=== PATIENT | female | born 1960 | race African-American/Black ===

== ENCOUNTER 2020-04-27 06:13 | Inpatient (IN) | payer OTHER ==
[2020-04-19 16:54] VITALS: BMI 33.4
[2020-04-27] MEDS ORDERED: PROPOFOL 20 ML ONE ×3 (07:21→08:14)
[2020-04-27] MEDS ORDERED: DEXAMETHASONE SOD PHOSPHATE/PF 10 MG/ML SDV ONE (07:26)
[2020-04-27] MEDS ORDERED: ROPIVACAINE HCL 0.5% 30ML VIAL ONE (07:26)
[2020-04-27] MEDS ORDERED: MIDAZOLAM HCL 2 MG/2 ML SINGLE DOSE VIAL ONE ×4 (07:26→10:06)
[2020-04-27] MEDS ORDERED: BUPIVACAINE HCL/PF 0.5% (5 MG/ML) 30 ML VIAL IJ ONE (07:28)
[2020-04-27] MEDS ORDERED: BUPIVACAINE HCL 50 ML ONE (07:55)
[2020-04-27] MEDS ORDERED: SUCCINYLCHOLINE CHLORIDE 200 MG/10 ML SYRINGE ONE (08:14)
[2020-04-27] MEDS ORDERED: EPHEDRINE SULFATE/0.9% NACL/PF 50 MG/10 ML SYRINGE NR ONE (08:14)
[2020-04-27] MEDS ORDERED: TRANEXAMIC ACID 1000 MG/10 ML VIAL ONE ×2 (08:20→10:13)
[2020-04-27] MEDS ORDERED: ceFAZolin SODIUM 1 GM VIAL ONE (08:20)
[2020-04-27] MEDS ORDERED: DEXAMETHASONE SOD PHOSPHATE 4 MG/1 ML VIAL ONE (08:22)
[2020-04-27] MEDS ORDERED: ONDANSETRON 4 MG/2 ML VIAL ONE (08:22)
[2020-04-27] MEDS ORDERED: BUPIVICAINE 0.25%/MORPH PF/KETOROLAC - 51ML DISP.SYRINGE IA ONE ×2 (09:29→10:00)
[2020-04-27] MEDS ORDERED: VANCOMYCIN 1,000 MG VIAL (RESTRICTED TO ID ONLY) ONE (10:01)
[2020-04-27] MEDS ORDERED: VANCOMYCIN 1,000 MG VIAL (RESTRICTED TO ID ONLY) IVPB ONE (10:02)
[2020-04-27] MEDS ORDERED: ONDANSETRON 4 MG/2 ML VIAL IVPUSH PRN ×2 (10:46→10:49)
[2020-04-27] MEDS ORDERED: PROMETHAZINE HCL 25 MG/1 ML VIAL IVPUSH PRN (10:46)
[2020-04-27] MEDS ORDERED: oxyCODONE HCL 5 MG TABLET PO PRN ×2 (10:46)
[2020-04-27] MEDS ORDERED: ACETAMINOPHEN 500 MG TABLET (FP) PO PRN (10:49)
[2020-04-27] MEDS ORDERED: MAG HYDROX/AL HYDROX/SIMETH 30 ML UNIT-DOSE CUP PO PRN (10:49)
[2020-04-27] MEDS ORDERED: MAGNESIUM HYDROX 2400MG/30ML ORAL SUSPENSION 30 ML CUP PO PRN (10:49)
[2020-04-27] MEDS ORDERED: LACTATED RINGERS SOLUTION 1,000 ML IV SCH (10:49)
[2020-04-27] MEDS ORDERED: ACETAMINOPHEN 325 MG TABLET (FP) PO SCH (11:00)
[2020-04-27] MEDS ORDERED: HYDROmorphone HCL 2 MG TABLET PO PRN (11:13)
--- NOTE | 2020-04-27 16:09 | HP ---
CHIEF COMPLAINT: Right hip pain HISTORY OF PRESENT ILLNESS: 59 year-old female with a PMH significant for HLD, hypothyroidism, peripheral neuropathy, breast cancer s/p partial mastectomy, and right hip OA s/p right total hip replacement MARIA EUGENIA today with Dr. Segundo. Recent Travel: No PAST MEDICAL HISTORY: Hyperlipidemia Hypothyroidism Peripheral neuropathy Breast cancer Osteoarthritis Depression PAST SURGICAL HISTORY: Partial mastectomy 2002 Umbilica hernia repair 1975 Tonsillectomy Social History: community center worker at [employer] Smoking: former Alcohol: no Drugs: no Family history: mother ovarian cancer, heart problems Allergies No Known Allergies Allergy (Verified 04/19/20 16:35) HOME MEDICATIONS: Home Medications Medication Instructions Recorded Acetaminophen 1,000 mg PO DAILY PRN 04/19/20 Ascorbic Acid Vitamin C 1,000 mg PO DAILY 04/19/20 Atorvastatin Ca [Lipitor] 40 mg PO HS 04/19/20 Azelastine/Fluticasone 23 gm NS PRN PRN 04/19/20 [Azelastin-Flutic 137-50Mcg Spr] Cyanocobalamin [Vitamin B12 -] 1,000 mcg PO DAILY 04/19/20 Levothyroxine [Synthroid -] 100 mcg PO DAILY 04/19/20 Melatonin 600 mcg SL DAILY 04/19/20 REVIEW OF SYSTEMS CONSTITUTIONAL: Absent: fever, chills, diaphoresis, generalized weakness, malaise, loss of appetite, weight change HEENT: Absent: rhinorrhea, nasal congestion, throat pain, throat swelling, difficulty swallowing, mouth swelling, ear pain, eye pain, visual changes CARDIOVASCULAR: Absent: chest pain, syncope, palpitations, irregular heart rate, lightheade dness, peripheral edema RESPIRATORY: Absent: cough, shortness of breath, dyspnea with exertion, orthopnea, wheezing, stridor, hemoptysis GASTROINTESTINAL: Absent: abdominal pain, abdominal distension, nausea, vomiting, diarrhea, constipation, melena, hematochezia GENITOURINARY: Absent: dysuria, frequency, urgency, hesitancy, hematuria, flank pain, genital pain MUSCULOSKELETAL: Absent: myalgia, arthralgia, joint swelling, back pain, neck pain SKIN: Absent: rash, itching, pallor HEMATOLOGIC/IMMUNOLOGIC: Absent: easy bleeding, easy bruising, lymphadenopathy, frequent infections ENDOCRINE: Absent: unexplained weight gain, unexplained weight loss, heat intolerance, cold intolerance NEUROLOGIC: Absent: headache, focal weakness or paresthesias, dizziness, unsteady gait, seizure, mental status changes, bladder or bowel incontinence PSYCHIATRIC: Absent: anxiety, depression, suicidal or homicidal ideation, hallucinations. PHYSICAL EXAMINATION Vital Signs - 24 hr 04/27/20 04/27/20 04/27/20 06:43 10:30 10:35 Temperature 97.8 F 97.8 F Pulse Rate 73 83 81 Respiratory 15 16 14 Rate Blood Pressure 146/85 115/63 110/61 O2 Sat by Pulse 99 99 100 Oximetry (%) 04/27/20 04/27/20 04/27/20 10:40 10:45 11:00 Temperature Pulse Rate 81 78 75 Respiratory 16 15 19 Rate Blood Pressure 112/61 112/60 116/61 O2 Sat by Pulse 100 100 100 Oximetry (%) 04/27/20 04/27/20 04/27/20 11:15 11:30 11:45 Temperature Pulse Rate 76 76 83 Respiratory 17 18 14 Rate Blood Pressure 111/61 109/66 115/75 O2 Sat by Pulse 100 100 100 Oximetry (%) 04/27/20 04/27/20 12:00 12:59 Temperature 97.7 F Pulse Rate 81 88 Respiratory 16 16 Rate Blood Pressure 109/88 121/62 O2 Sat by Pulse 100 100 Oximetry (%) GENERAL: Awake, alert, and fully oriented, in no acute distress. LUNGS: Breath sounds equal, clear to auscultation bilaterally. No wheezes, and no crackles. No accessory muscle use. HEART: Regular rate and rhythm, S1 and S2 ABDOMEN: Soft, nontender, not distended UPPER EXTREMITIES: 2+ pulses, warm, well-perfused. No cyanosis. No clubbing. No peripheral edema. LOWER EXTREMITIES: right hip surgical dressing c/d/i; no surrounding erythema or swelling +flex/extend bilateral toes, sensory intact abductor wedge in place NEUROLOGICAL: Cranial nerves II-XII intact. Normal speech. Pre op BUN 9 Cr 0.8 Hgb 13.7 Intra op cefazolin 2g x 1 EBL none LR 1L ASSESSMENT/PLAN: 59 year-old female with a PMH significant for HLD, hypothyroidism, peripheral neuropathy, breast cancer s/p partial mastectomy, and right hip OA s/p right total hip replacement MARIA EUGENIA today with Dr. Segundo. Right total hip replacement [facility] --POD #0 --perioperative antibiotics per surgery --pain management per surgery --protonix --bowel regimen --incentive spirometry Hyperlipidemia --continue Lipitor Hypothyroidism --continue levothyroxine Peripheral neuropathy --continue Gabapentin, Vit B12 Breast cancer --stable FEN Fluids: LR@125mL/hr Electrolytes: replete as indicated Nutrition: regular diet DVT prophylaxis: subq lovenox 40mg daily; OOB, ambulation, SCDs, TEDs Physical therapy Dispo: continues to require inpatient care. Full code. Visit type - Emergency Visit Emergency Visit: No - New Patient This patient is new to me today: Yes Date on this admission: 04/27/20 - Critical Care Critical Care patient: No
[2020-04-27] MEDS: CEFAZOLIN 2 GM/D5W 2 GM/50 ML ML IVPB SCH (17:34)
--- NOTE | 2020-04-27 20:02 | OP ---
DATE OF OPERATION: 04/27/2020 ATTENDING SURGEON: Naman Prather MD. MANAGER OF HUMAN RESOURCES: VAHID Johnson. PREOPERATIVE DIAGNOSIS: Severe osteoarthritis, right hip. POSTOPERATIVE DIAGNOSIS: Severe osteoarthritis, right hip. PROCEDURE: Right total hip arthroplasty with robotic assistance. ANESTHESIA: Regional and spinal. ESTIMATED BLOOD LOSS: 100. IMPLANTS USED: Eden Tritanium cluster cup size 48, 36-mm standard liner, 36-mm plus 2.5-mm ceramic head, Accolade 2 femoral stem size 3. COMPLICATIONS: None. DISPOSITION: Stable to recovery room following procedure. INDICATION: This is 59-year-old woman with severe osteoarthritis of her right hip. She has had conservative treatment including physical therapy, medication injection, and a significant pain and disability that affects her activities of daily living. She wishes to proceed with elective total hip arthroplasty at this point. A thorough discussion of risks and benefits was had with the patient regarding treatment including infection, stiffness, dislocation, leg length discrepancy, fracture, neurovascular injury. She understands and wishes to proceed. DETAILS OF PROCEDURE: Patient identified in preoperative area. She had undergone preoperative planning with CT scan for Makoplasty. She underwent a regional block in the preoperative area. Was taken to the operating room and sat up on operating room table and given a spinal anesthetic. She received 2 g Ancef IV. She also received 1 g tranexamic acid during incision and another during closure. She was placed in the lateral decubitus position and held in place with a pegboard positioned with bony prominences well padded and the axillary roll in place. Right hip and lower extremity are prepped and draped in standard sterile fashion. 3 stab incisions were made proximally for the pelvic array pins. These pins were placed, and the pelvic array was placed. The approximately 13-cm curvilinear incision was made for the posterior approach to the right hip. The fascia was incised, external rotators and capsules were divided off the posterior neck of the femur. The femoral checkpoint was placed and limb lengths were registered at that point. The hip was dislocated and the neck cut was made. An anterior capsulotomy was performed through which retractor was placed. Soft tissues were excised around the periphery of the acetabulum. A Steinmann pin was placed superiorly for retraction and a superior pelvic checkpoint was also placed at that point. Registration was performed. The acetabulum was then reamed at the appropriate version and depth according to plan. The acetabulum was then impacted into place. A final impaction and positioning performed freehand. The standard liner was placed and the locking mechanism engaged. The proximal femur then delivered at the incision, and the proximal femur was prepared with box osteotome canal finder followed by serial broaches up to size 3, which had excellent fit and fill and stability. A trial head and neck were placed standard, and the hip was reduced with good range of motion and no instability to approximately 80 degrees of internal fixation with the hip flexed. These trials were removed, and the size 3 Accolade stem was placed and seated. Again, neck lengths were trialed. The plus 2.5 allowed for slight better buddhism of limb length and stability. The plus 2.5, 36-mm ceramic head was then placed and the Noe taper engaged. The wound was copiously irrigated with pulsatile lavage many times. The short external rotators were repaired through drill hole in the trochanter. The quadratus femoris was repaired to the vastus lateralis tendon. The perioperative site was injected with a combination of Toradol, and bupivacaine, and saline, and also the surgical site was sprinkled with powdered vancomycin. The fascia was closed with number 1 Vicryl suture, the skin was closed with 2-0 Vicryl and chanelle. The proximal stab incisions were closed with nylon suture. Sterile dressings were applied. The patient was then placed supine, and limb lengths were noted to be even. Abduction pillow was placed. She was transferred to her bed, taken to recovery room in stable condition. Jyoti Jordan, was necessary, as she was integral to all parts of the case, and no other physician was available to assist. NAMAN PRATHER M.D. MINESH/[id number]
[2020-04-27] MEDS: ATORVASTATIN CA 40 MG TABLET (FP) PO SCH (21:18)
[2020-04-27] MEDS: GABAPENTIN 300 MG CAPSULE PO SCH ×2 (21:18→21:25)
[2020-04-27] MEDS: SENNOSIDES/DOCUSATE COMBO (SENNA PLUS) TABLET (UD) PO SCH (21:19)
[2020-04-27] MEDS ORDERED: oxyCODONE HCL 10 MG SUSTAINED ACTING TABLET PO SCH (22:00)
[2020-04-28] MEDS: oxyCODONE HCL 5 MG TABLET PO PRN ×5 (00:39→21:35)
[2020-04-28] MEDS: CEFAZOLIN 2 GM/D5W 2 GM/50 ML ML IVPB SCH (02:35)
[2020-04-28] MEDS: LEVOTHYROXINE NA 100 MCG TABLET (FP) PO SCH (06:20)
[2020-04-28] MEDS ORDERED: ENOXAPARIN NA (PORCINE) 40 MG/0.4 ML DISP.SYRIN SQ SCH (08:00)
[2020-04-28 08:06] LABS: CALCIUM 9.4 mg/dl (8.5-10); CREATININE 0.7 mg/dl (0.55-1.3); POTASSIUM 4.5 mmol/L (3.5-5.1)
[2020-04-28 08:08] LABS: HEMATOCRIT 35.3 % (32.4-45.2); HEMOGLOBIN 11.4 GM/dl (10.7-15.3); MCH 31.5 pg (25.7-33.7); MCHC 32.5 g/dl (32.0-36.0); MEAN CELL VOLUME 97.1 fl (80-96); MEAN PLT VOLUME 8.1 fl (7.5-11.1); PLATELET COUNT 217 K/MM3 (134-434); RBC 3.63 M/mm3 (3.60-5.2); RDW 12.8 % (11.6-15.6); WHITE BLOOD COUNT 10.3 K/mm3 (4.0-10.8)
--- NOTE | 2020-04-28 08:10 | PN ---
Physical Exam: SUBJECTIVE: Patient seen and examined oob to chair. Pain is well-managed. Feels she did well with PT this morning. OBJECTIVE: Vital Signs Period Temp Pulse Resp BP Sys/Storey Pulse Ox Last 24 Hr 97.4 F-98.5 F 75-106 14-19 109-152/58-88 94-100 GENERAL: Awake, alert, and fully oriented, in no acute distress. LUNGS: Breath sounds equal, clear to auscultation bilaterally. No wheezes, and no crackles. No accessory muscle use. HEART: Regular rate and rhythm, S1 and S2 ABDOMEN: Soft, nontender, not distended UPPER EXTREMITIES: 2+ pulses, warm, well-perfused. No cyanosis. No clubbing. No peripheral edema. LOWER EXTREMITIES: right hip surgical dressing c/d/i; no surrounding erythema or swelling +flex/extend bilateral toes, sensory intact NEUROLOGICAL: Cranial nerves II-XII intact. Normal speech. Active Medications Generic Name Dose Route Start Last Admin Trade Name Freq PRN Reason Stop Dose Admin Acetaminophen 1,000 mg 04/27/20 10:49 Tylenol - PO Q6H PRN PAIN OR FEVER Al Hydroxide/Mg Hydroxide 30 ml 04/27/20 10:49 Mylanta Oral Suspension - PO Q4H PRN DYSPEPSIA Atorvastatin Calcium 40 mg 04/27/20 22:00 04/27/20 21:18 Lipitor - PO 40 mg HS KRISHNA Administration Cyanocobalamin 1,000 mcg 04/28/20 10:00 Vitamin B12 - PO DAILY [facility] Enoxaparin Sodium 40 mg 04/28/20 08:00 Lovenox - SQ DAILY@0800 KRISHNA Gabapentin 300 mg 04/27/20 22:00 04/27/20 21:25 Neurontin - PO 04/30/20 21:59 Not Given BID KRISHNA Levothyroxine Sodium 100 mcg 04/28/20 07:00 04/28/20 06:20 Synthroid - PO 100 mcg DAILY@0700 KRISHNA Administration Magnesium Hydroxide 30 ml 04/27/20 10:49 Milk Of Magnesia - PO PRN PRN CONSTIPATION Multivitamins/Minerals/Vitamin C 1 tab 04/28/20 10:00 Tab-A-Vit - PO DAILY KRISHNA Ondansetron HCl 4 mg 04/27/20 10:49 Zofran Injection IVPUSH Q6H PRN NAUSEA Oxycodone HCl 5 mg 04/27/20 10:49 Roxicodone - PO Q4H PRN PAIN LEVEL 1-3 Oxycodone HCl 10 mg 04/27/20 10:49 04/28/20 00:39 Roxicodone - PO 10 mg Q4H PRN Administration PAIN LEVEL 4-6 Pantoprazole Sodium 40 mg 04/28/20 10:00 Protonix - PO DAILY KRISHNA Senna/Docusate Sodium 2 tablet 04/27/20 22:00 04/27/20 21:19 Pericolace - PO 2 tablet BID KRISHNA Administration Pre op BUN 9 Cr 0.8 Hgb 13.7 Intra op cefazolin 2g x 1 EBL none LR 1L ASSESSMENT/PLAN: 59 year-old female with a PMH significant for HLD, hypothyroidism, peripheral neuropathy, breast cancer s/p partial mastectomy, and right hip OA s/p right total hip replacement MARIA EUGENIA today with Dr. Segundo. Right total hip replacement MARIA EUGENIA --POD #1 --perioperative antibiotics complete --pain well-managed with PO meds --protonix --bowel regimen --incentive spirometry Hyperlipidemia --continue Lipitor Hypothyroidism --continue levothyroxine Peripheral neuropathy --continue Gabapentin, Vit B12 Breast cancer --stable FEN Fluids: PO intake adequate Electrolytes: replete as indicated Nutrition: regular diet DVT prophylaxis: subq lovenox 40mg daily; OOB, ambulation, SCDs, TEDs Physical therapy Dispo: continues to require inpatient care. Full code. Visit type - Emergency Visit Emergency Visit: No - New Patient This patient is new to me today: No - Critical Care Critical Care patient: No
--- NOTE | 2020-04-28 08:11 | PN ---
Progress Note, Physician Chief Complaint: pain controlled - Current Medication List Current Medications: Active Medications Acetaminophen (Tylenol -) 1,000 mg PO Q6H PRN PRN Reason: PAIN OR FEVER Al Hydroxide/Mg Hydroxide (Mylanta Oral Suspension -) 30 ml PO Q4H PRN PRN Reason: DYSPEPSIA Atorvastatin Calcium (Lipitor -) 40 mg PO HS [facility] Last Admin: 04/27/20 21:18 Dose: 40 mg Documented by: Cyanocobalamin (Vitamin B12 -) 1,000 mcg PO DAILY [facility] Enoxaparin Sodium (Lovenox -) 40 mg SQ DAILY@0800 [facility] Gabapentin (Neurontin -) 300 mg PO BID [facility] Stop: 04/30/20 21:59 Last Admin: 04/27/20 21:25 Dose: Not Given Documented by: Levothyroxine Sodium (Synthroid -) 100 mcg PO DAILY@0700 [facility] Last Admin: 04/28/20 06:20 Dose: 100 mcg Documented by: Magnesium Hydroxide (Milk Of Magnesia -) 30 ml PO PRN PRN PRN Reason: CONSTIPATION Multivitamins/Minerals/Vitamin C (Tab-A-Vit -) 1 tab PO DAILY [facility] Ondansetron HCl (Zofran Injection) 4 mg IVPUSH Q6H PRN PRN Reason: NAUSEA Oxycodone HCl (Roxicodone -) 5 mg PO Q4H PRN PRN Reason: PAIN LEVEL 1-3 Oxycodone HCl (Roxicodone -) 10 mg PO Q4H PRN PRN Reason: PAIN LEVEL 4-6 Last Admin: 04/28/20 00:39 Dose: 10 mg Documented by: Pantoprazole Sodium (Protonix -) 40 mg PO DAILY [facility] Senna/Docusate Sodium (Pericolace -) 2 tablet PO BID [facility] Last Admin: 04/27/20 21:19 Dose: 2 tablet Documented by: - Objective Vital Signs: Vital Signs Temperature 98.5 F 04/28/20 06:00 Pulse Rate 99 H 04/28/20 06:00 Respiratory Rate 18 04/28/20 06:00 Blood Pressure 152/75 04/28/20 06:00 O2 Sat by Pulse Oximetry (%) 96 04/28/20 06:00 Constitutional: Yes: No Distress Wound/Incision: Yes: Clean/Dry Neurological: Yes: WNL Problem List - Problems (1) Right hip pain Assessment/Plan: POD 1 R KATARZYNA PT/OT hip precautions Code(s): M25.551 - PAIN IN RIGHT HIP Assessment/Plan POD 1 R KATARZYNA PT/OT hip precautions POD 1 R KATARZYNA PT/OT hip precautions DVT prophylaxis
[2020-04-28] MEDS: GABAPENTIN 300 MG CAPSULE PO SCH ×3 (09:27→21:34)
[2020-04-28] MEDS: SENNOSIDES/DOCUSATE COMBO (SENNA PLUS) TABLET (UD) PO SCH ×2 (09:27→21:35)
[2020-04-28] MEDS: CYANOCOBALAMIN 1,000 MCG TABLET (FP) PO SCH (09:27)
[2020-04-28] MEDS: MULTIVITAMINS (DAILY MVI) TABLET (FP) PO SCH (09:27)
[2020-04-28] MEDS: PANTOPRAZOLE 40 MG TABLET PO SCH (09:27)
[2020-04-28] MEDS: ENOXAPARIN NA (PORCINE) 40 MG/0.4 ML DISP.SYRIN SQ SCH (09:28)
--- NOTE | 2020-04-28 10:14 | PN ---
Progress Note (short form) - Note Progress Note: 59F POD1 s/p R THR under spinal anesthetic with peripheral nerve blocks. Pt states that pain is well controlled and reports no anesthetic complications. AVSS. Continue current regimen.
[2020-04-28] MEDS: ATORVASTATIN CA 40 MG TABLET (FP) PO SCH (21:34)
[2020-04-29] MEDS: oxyCODONE HCL 5 MG TABLET PO PRN ×3 (03:14→15:38)
[2020-04-29] MEDS: LEVOTHYROXINE NA 100 MCG TABLET (FP) PO SCH (06:18)
--- NOTE | 2020-04-29 08:04 | PN ---
Progress Note (short form) - Note Progress Note: Pt c/o pain, still kenia numbness anterior thigh. RLE DNVI, dressings CDI POD2 R KATARZYNA PT/OT, WBAT, hip precautions DVT prophylaxis, ASA x 4 weeks when D/C home f/u in office 2weeks Problem List - Problems (1) Right hip pain Code(s): M25.551 - PAIN IN RIGHT HIP
[2020-04-29 08:22] LABS: HEMATOCRIT 35.7 % (32.4-45.2); HEMOGLOBIN 11.5 GM/dl (10.7-15.3); MCHC 32.1 g/dl (32.0-36.0); MEAN CELL VOLUME 96.7 fl (80-96); MEAN PLT VOLUME 8.3 fl (7.5-11.1); PLATELET COUNT 254 K/MM3 (134-434); RDW 13.1 % (11.6-15.6); WHITE BLOOD COUNT 10.8 K/mm3 (4.0-10.8)
[2020-04-29 08:24] LABS: ALBUMIN 3.5 g/dl (3.4-5.0); BILIRUBIN,TOTAL 0.6 mg/dl (0.2-1); CALCIUM 8.9 mg/dl (8.5-10); CREATININE 0.7 mg/dl (0.55-1.3); MAGNESIUM 1.8 mg/dL (1.8-2.4); POTASSIUM 3.7 mmol/L (3.5-5.1); TOT PROT 6.8 g/dl (6.4-8.2)
[2020-04-29] MEDS: ENOXAPARIN NA (PORCINE) 40 MG/0.4 ML DISP.SYRIN SQ SCH (09:04)
[2020-04-29] MEDS: MULTIVITAMINS (DAILY MVI) TABLET (FP) PO SCH (09:05)
[2020-04-29] MEDS: CYANOCOBALAMIN 1,000 MCG TABLET (FP) PO SCH (09:05)
[2020-04-29] MEDS: GABAPENTIN 300 MG CAPSULE PO SCH (09:05)
[2020-04-29] MEDS: PANTOPRAZOLE 40 MG TABLET PO SCH (09:05)
[2020-04-29] MEDS: SENNOSIDES/DOCUSATE COMBO (SENNA PLUS) TABLET (UD) PO SCH (09:05)
[2020-04-29 11:24] VITALS: BP 124/62; PULSE 90; TEMP 98.7
--- NOTE | 2020-04-29 12:30 | DS ---
Physical Exam: SUBJECTIVE: Patient seen and examined OBJECTIVE: Vital Signs Period Temp Pulse Resp BP Sys/Storey Pulse Ox Last 24 Hr 98.4 F-100.2 F 84-110 16-20 124-162/55-83 93-96 PHYSICAL EXAM GENERAL: Awake, alert, and fully oriented, in no acute distress. LUNGS: Breath sounds equal, clear to auscultation bilaterally. No wheezes, and no crackles. No accessory muscle use. HEART: Regular rate and rhythm, S1 and S2 ABDOMEN: Soft, nontender, not distended UPPER EXTREMITIES: 2+ pulses, warm, well-perfused. No cyanosis. No clubbing. No peripheral edema. LOWER EXTREMITIES: right hip surgical dressing c/d/i; no surrounding erythema or swelling +flex/extend bilateral toes, sensory intact NEUROLOGICAL: Cranial nerves II-XII intact. Normal speech. LABS Laboratory Results - last 24 hr 04/29/20 04/29/20 07:03 07:03 WBC 10.8 RBC 3.70 Hgb 11.5 Hct 35.7 MCV 96.7 H MCH 31.0 MCHC 32.1 RDW 13.1 Plt Count 254 MPV 8.3 Sodium 134 L Potassium 3.7 Chloride 101 Carbon Dioxide 23 Anion Gap 10 BUN 9.0 Creatinine 0.7 Est GFR (CKD-EPI)AfAm 109.15 Est GFR (CKD-EPI)NonAf 94.17 Random Glucose 116 H Calcium 8.9 Magnesium 1.8 Total Bilirubin 0.6 AST 29 ALT 17 Alkaline Phosphatase 85 Total Protein 6.8 Albumin 3.5 HOSPITAL COURSE: Date of Admission:04/27/20 Date of Discharge: 04/29/20 59 year-old female with a PMH significant for HLD, hypothyroidism, peripheral neuropathy, breast cancer s/p partial mastectomy, and right hip OA s/p right total hip replacement MARIA EUGENIA today with Dr. Segundo. Right total hip replacement MARIA EUGENIA --POD #1 --perioperative antibiotics complete --pain well-managed with PO meds --discharge on ASA 81mg daily x 4 weeks Hyperlipidemia --continued Lipitor Hypothyroidism --continued levothyroxine Peripheral neuropathy --continued Gabapentin, Vit B12 Breast cancer --stable I STOP checked, no record found Minutes to complete discharge: 35 Discharge Summary Problems reviewed: Yes Reason For Visit: RIGHT HIP OSTEOARTHRITIS Current Active Problems Right hip pain (Acute) Condition: Improved - Instructions Diet, Activity, Other Instructions: You are to take aspirin 81mg every day for 4 weeks. You need to follow up with your orthopedic surgeon, Dr. Segundo, in two weeks. Referrals: Naman Segundo MD [Staff Physician] - Disposition: HOME - Home Medications Comprehensive Discharge Medication List: Ambulatory Orders Acetaminophen 1,000 mg PO DAILY PRN 04/19/20 Ascorbic Acid [Vitamin C] 1,000 mg PO DAILY 04/19/20 Atorvastatin Ca [Lipitor] 40 mg PO HS 04/19/20 Azelastine/Fluticasone [Azelastin-Flutic 137-50Mcg Spr] 23 gm NS PRN PRN 04/19/20 Cyanocobalamin [Vitamin B12 -] 1,000 mcg PO DAILY 04/19/20 Levothyroxine [Synthroid -] 100 mcg PO DAILY 04/19/20 Melatonin 600 mcg SL DAILY 04/19/20 oxyCODONE HCL [Roxicodone -] 5 mg PO Q6H PRN #20 tablet MDD 4 04/29/20 Prescription Drug Monitoring Program (I-STOP) results: I-STOP reviewed and no issues identified This patient is new to me today: No Emergency Visit: No Critical Care patient: No - Discharge Referral Referred to [facility] Med P.C.: No
--- NOTE | 2020-05-02 17:29 | PATH ---
Surgical Pathology Report Patient Name: LAINE HANKS Med. Rec. #: [id number] /Age/Gender: 1960 (Age: 59) / F Account: [id number] Location: [facility] MED-SURG Taken: 04/27/2020 Received: 04/27/2020 Reported: 05/02/2020 Physicians: Naman Segundo M.D. Specimen(s) Received RIGHT HIP FEMORAL HEAD Clinical History Right hip osteoarthritis Final Diagnosis FEMORAL HEAD, RIGHT, HIP, TOTAL HIP REPLACEMENT: DEGENERATIVE JOINT DISEASE. Electronically Signed Eliz Wise M.D. Gross Description Received in formalin, labeled "right hip femoral head," is a 4.0 x 3.8 x 3.8 cm. femoral head with a 1.3 cm in length portion of femoral neck attached. The margin of resection is smooth. There is a 1.8 cm in greatest dimension area of eburnation present. The remaining articular surface is arana-yellow and focally granular. The underlying trabecular bone is yellow and hard. A independent sales representative section is submitted in one cassette, following decalcification. 04/28/2020 [facility]04/28/2020
== END 2020-04-29 15:50 | disposition home or self-care (01) | DRG 301 ==
LOC: FM/S 06:13 → UNDOADMIN 06:13
PROVIDERS: ADMIT Orthopaedic Surgery; ATTEND Orthopaedic Surgery
PROC: 0SR90JZ Replacement of Right Hip Joint with Synthetic Substitute, Open Approach (ICD-10-PCS; principal; 2020-04-27 08:33)
DX: M16.11 Unilateral primary osteoarthritis, right hip (principal); E78.5 Hyperlipidemia, unspecified; E03.9 Hypothyroidism, unspecified; M25.551 Pain in right hip; G62.9 Polyneuropathy, unspecified
CPT/HCPCS: 36415; 73502-TC-RT-FY; 80048; 80053; 83735; 85027; 88305-TC; 88311-TC; 94760; 97116-GP; 97162-GP